=== PATIENT | male | born 2000 | race Hispanic/Latino ===

== ENCOUNTER 2018-07-23 00:50 | Emergency (ER) | payer SELFPAY ==
[~2018-07-23] VITALS: Ht 172.7 cm; Wt 65.8 kg
--- OUTSIDE RECORDS SUMMARY | 2018-07-23 00:53 | XMS REPORT ---
Author [facility] Address Unknown Phone Unavailable Care Team Providers Care Case Sealer Name Role Phone Unavailable Unavailable Payers Payer Name Policy Type Policy Number Effective Date Expiration Date Problems This patient has no known problems. Allergies, Adverse Reactions, Alerts Allergy Name Allergy Type Status Severity Reaction(s) Onset Date Inactive Date Treating Clinician Comments No Known Allergies DA Active U 2017-11-29 00:00:00 Medications This patient has no known medications. Encounters Start Date/Time End Date/Time Encounter Type Admission Type Attending [facility] Care Department Encounter ID 2018-07-23 00:09:00 2018-07-23 00:09:00 Emergency E [id number]
[2018-07-23] MEDS ORDERED: BACITRACIN ZINC 0.9GM TP ONE (01:30)
--- NOTE | 2018-07-23 02:42 | Diagnostic Imaging Report ---
Right forearm 2 - views HISTORY: Trauma with laceration. Foreign body. COMPARISON: None FINDINGS: No displaced fracture. Osseous alignment is within normal limits. The joint spaces are well-maintained. Soft tissue gas in the ventral aspect of the proximal forearm just inferior to the occipital fossa. 5.6 mm projected on the subcutaneous region of the ventral aspect of the proximal forearm. IMPRESSION: 5.6 mm foreign body in the subcutaneous region of the ventral aspect of the proximal forearm, possibly a fragment of glass related to laceration. Signed by: Dr. Henna Mills M.D. on 07/23/2018 2:38 AM
== END 2018-07-23 02:38 | disposition home or self-care (01) ==
LOC: FSED 00:50
DX: S51.821A Laceration with foreign body of right forearm, initial encounter (principal); W18.02XA Striking against glass with subsequent fall, initial encounter; Y93.64 Activity, baseball; Y92.017 Garden or yard in single-family (private) house as the place of occurrence of the external cause
CPT/HCPCS: 99283